=== PATIENT | female | born 1990 | race Caucasian/White ===

== ENCOUNTER 2021-07-09 14:10 | Inpatient (IN) | payer OTHER ==
[2021-07-09] VITALS (16 sets, daily range): BP systolic 91–135; BP diastolic 62–118
[~2021-07-09] VITALS: Ht 165.1 cm; Wt 89.1 kg
[2021-07-09] MEDS ORDERED: LAMICTAL200 MG PO (14:19)
[2021-07-09 14:30] LABS: ABSOLUTE LYMPHOCYTES 0.6 thou/uL (0.8-5.3); ABSOLUTE MONOCYTES 0.2 thou/uL (0.0-1.2); ABSOLUTE NEUTROPHILS 2.8 thou/uL (1.6-8.1); BASOPHILS 0.4 %; EOSINOPHILS 0.1 %; HEMATOCRIT 40.5 % (37.0-47.0); HEMOGLOBIN 13.6 gm/dL (12.0-15.0); LYMPHOCYTES 17.2 %; MCH 30.9 pg (26.0-34.0); MCHC 33.6 g/dL (28.0-37.0); MCV 92.2 fL (80.0-100.0); MPV 9.4 fl. (7.2-11.1); NUCLEATED RBCS 0 /100WBC; PLATELET COUNT* 95 thou/uL (150-400); POLYS 77.3 %; RDW-CV 11.9 % (10.5-14.5); WBC 3.6 thou/uL (4.0-11.0)
[2021-07-09 14:36] LABS: CALCIUM 7.2 mg/dL (8.5-10.1); CREATININE 0.9 mg/dL (0.6-1.3); POTASSIUM 3.6 mmol/L (3.5-5.1)
[2021-07-09 14:51] LABS: ALBUMIN 2.9 g/dL (3.4-5.0); MAGNESIUM 1.7 mg/dL (1.8-2.4); TOTAL BILIRUBIN 0.2 mg/dL (<0.1-1.0); TOTAL PROTEIN 5.8 g/dL (6.4-8.2)
[2021-07-10] VITALS (10 sets, daily range): BP systolic 53–151; BP diastolic 37–128
[2021-07-10 06:48] LABS: BE -17.9 mmol/L (-2 to +3); PO2 76.4 mmHg (75.0-100.0)
[2021-07-10 06:51] LABS: PCO2 19.2 mmHg (35.0-45.0); pH 7.207 (7.340-7.450)
[2021-07-10 11:17] LABS: HEMATOCRIT 38.3 % (37.0-47.0); MCH 31.2 pg (26.0-34.0); NUCLEATED RBCS 0 /100WBC; PLATELET COUNT* 63 thou/uL (150-400); RBC 3.55 mil/uL (4.20-5.00); RDW-CV 14.2 % (10.5-14.5)
[2021-07-10 11:19] LABS: HEMOGLOBIN 11.1 gm/dL (12.0-15.0); MCV 107.9 fL (80.0-100.0); WBC 23.4 thou/uL (4.0-11.0)
[2021-07-10 11:40] LABS: BUN 20 mg/dL (7-18); CALCIUM 6.7 mg/dL (8.5-10.1); CHLORIDE 107 mmol/L (98-107); GLUCOSE 289 mg/dL (70-99); SODIUM 144 mmol/L (136-145)
[2021-07-10 11:42] LABS: ANION GAP 32 mmol/L (7-16)
[2021-07-10 11:45] LABS: CO2 < 5 mmol/L (21-32); POTASSIUM 6.4 mmol/L (3.5-5.1)
[2021-07-10 11:50] LABS: ALBUMIN 1.3 g/dL (3.4-5.0); ALKALINE PHOSPHATASE 58 U/L (46-116); MAGNESIUM 3.1 mg/dL (1.8-2.4); SGOT 1581 U/L (15-37); SGPT 1482 U/L (30-65); TOTAL BILIRUBIN 0.3 mg/dL (<0.1-1.0); TOTAL PROTEIN 3.3 g/dL (6.4-8.2)
[2021-07-10 12:08] LABS: ABSOLUTE BASOPHILS 0.2 thou/uL (0.0-0.2); ABSOLUTE LYMPHOCYTES 10.1 thou/uL (0.8-5.3); ABSOLUTE MONOCYTES 1.2 thou/uL (0.0-1.2); ABSOLUTE NEUTROPHILS 11.9 thou/uL (1.6-8.1); HYPOCHROMASIA Occasional; METAMYELOCYTES 2 %; PLATELET ESTIMATE DECREASED
[2021-07-10 12:09] LABS: MACROCYTES Occasional
--- NOTE | 2021-07-10 12:51 | EKG ---
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
--- NOTE | 2021-07-11 08:11 | EKG ---
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1990 Requested By: Reynaldo Lange Order Number: [id number] Reading MD: Max Vyas Measurements Intervals [place] Rate: 108 P: 77 MS: 136 QRS: 80 QRSD: 67 T: 55 QT: 324 QTc: 435 Interpretive Statements Sinus tachycardia Low voltage, extremity leads ST elev, probable normal early repol pattern Compared to ECG 07/09/2021 14:15:25 No significant changes noted Electronically Signed On 07-11-2021 8:10:54 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
--- NOTE | 2021-07-11 08:36 | EKG ---
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 : 1990 Requested By: Reynaldo Lange Order Number: [id number] Reading MD: Max Vyas Measurements Intervals [place] Rate: 104 P: 82 CT: 127 QRS: 82 QRSD: 105 T: 63 QT: 345 QTc: 454 Interpretive Statements Sinus tachycardia Low voltage, precordial leads ST elevation suggests acute pericarditis Compared to ECG 07/09/2021 14:19:55 Aberrant conduction of supraventricular beat(s) no longer present ST (T wave) deviation still present Electronically Signed On 07-11-2021 8:36:29 PLATE FORMER by Max Vyas [email or web address] <ELECTRONICALLY SIGNED> By: Max Vyas MD, FACC 07/11/21 0836 1528 1528 Max Vyas MD, FAC /EPI
--- NOTE | 2021-07-11 08:36 | EKG ---
[place] [address] ELECTROCARDIOGRAM REPORT Name: TUAN CERVANTES Room: [address] IN 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 : 1990 Requested By: Reynaldo Lange Order Number: [id number] Reading MD: Max Vyas Measurements Intervals [place] Rate: 169 P: [place]: QRS: 130 QRSD: 182 T: 21 QT: 429 QTc: 720 Interpretive Statements Sinus rhythm ventricular tachycardia, unsustained Artifact Diffuse ST segment elevation, consider early repolarization compared to ECG 07/09/2021 14:19:55 No significant changes noted Electronically Signed On 07-11-2021 8:36:22 MOSAICIST by Max Vyas [email or web address] <ELECTRONICALLY SIGNED> By: Max Vyas MD, FACC 07/11/21 0836 1517 1517 Mxa Vyas MD, FACC /EPI
--- NOTE | 2021-07-11 08:48 | EKG ---
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: : 1990 Requested By: Randolph Grande Order Number: [id number] Reading MD: Max Vyas Measurements Intervals [place] Rate: 124 P: 121 TN: 63 QRS: 72 QRSD: 117 T: 260 QT: 379 QTc: 545 Interpretive Statements Sinus tachycardia Probable left atrial enlargement Nonspecific intraventricular conduction delay Anterolateral infarct, acute ST elevation, consider inferior injury Baseline wander in lead(s) V3 Compared to ECG 07/09/2021 15:28:08 Intraventricular conduction delay now present Myocardial infarct finding now present ST (T wave) deviation still present Electronically Signed On 07-11-2021 8:47:59 OFF PREMISE SERVICE REPRESENTATIVE by Max Vyas [email or web address] <ELECTRONICALLY SIGNED> By: Max Vyas MD, FACC 07/11/2147 6 6 Max Vyas MD, FAC /EPI
== END 2021-07-10 11:31 | DRG 871 ==
LOC: M.ERS 14:10 → M.ICU 16:19 → M.TBA-ER 16:19 → M.ICU 18:09
PROVIDERS: Emergency Medicine Emergency Medical Services; Internal Medicine Critical Care Medicine; ADMIT Internal Medicine; ATTEND Internal Medicine
DX: A41.9 Sepsis, unspecified organism (principal); U07.1 COVID-19; J12.82 Pneumonia due to coronavirus disease 2019; I31.9 Disease of pericardium, unspecified; I46.9 Cardiac arrest, cause unspecified